=== PATIENT | female | born 1945 | race Caucasian/White ===

== ENCOUNTER 2017-12-04 08:53 | Outpatient (RCR) | payer OTHER ==
[~2017-12-04 08:53] MED LIST: BIAXIN500 MG ORAL
== END 2017-12-23 | disposition home or self-care (01) ==
LOC: PTY 08:53
DX: M16.11 Unilateral primary osteoarthritis, right hip (principal); Z96.641 Presence of right artificial hip joint
CPT/HCPCS: 97110; 97140; 97161; G0283

== ENCOUNTER 2018-01-27 09:24 | Outpatient (RCR) | payer OTHER | END 2018-02-22 | disposition home or self-care (01) | LOC: PTY 09:24 | DX: M16.11 Unilateral primary osteoarthritis, right hip (principal); Z96.641 Presence of right artificial hip joint | CPT/HCPCS: 97032; 97110; 97140; G0283 ==

== ENCOUNTER 2018-03-11 14:15 | Outpatient (RCR) | payer OTHER | END 2018-03-25 | disposition home or self-care (01) | LOC: PTY 14:15 | DX: Z96.641 Presence of right artificial hip joint (principal) ==